=== PATIENT | male | born 1960 | race Caucasian/White ===

== ENCOUNTER → 2016-10-29 | Outpatient (CLI) | payer OTHER ==
[2016-10-29 18:56] LABS: ALT 45 U/L (21-72); AST 25 U/L (17-59); Alkaline Phosphatase 78 U/L (38-126); Anion Gap 12 mmol/L; Blood Urea Nitrogen 17 mg/dL (9-20); Calcium 9.9 mg/dL (8.4-10.2); Carbon Dioxide 22 mmol/L (22-30); Chloride 103 mmol/L (98-107); Cholesterol 165 mg/dL (<200); Glucose 180 mg/dL (74-99); HDL Cholesterol 58 mg/dL (40-60); Non-African American GFR(MDRD) >60 (>60 ml/min/1.73 sqM); Potassium 4.5 mmol/L (3.5-5.1); Sodium 137 mmol/L (137-145); Total Bilirubin 0.5 mg/dL (0.2-1.3); Total Protein 7.1 g/dL (6.3-8.2); Triglycerides 139 mg/dL (<150)
[2016-10-29 19:16] LABS: Basophils # (A) 0.1 k/uL (0-0.2); Basophils % (A) 1 %; CH 32.5; Eosinophils # (A) 0.2 k/uL (0-0.7); Eosinophils % (A) 3 %; HCT 46.2 % (39.0-53.0); HDW 2.54; HGB 16.1 gm/dL (13.0-17.5); Luc # (Auto) 0.14; Luc % (Auto) 2; Lymphocytes % (A) 29 %; MCH 32.5 pg (25.0-35.0); MCHC 34.9 g/dL (31.0-37.0); MCV 93.1 fL (80.0-100.0); Mean Platelet Volume 7.3; Monocytes # (A) 0.5 k/uL (0-1.0); Monocytes % (A) 8 %; Neutrophils % (A) 58 %; RBC 4.97 m/uL (4.30-5.90); RDW 12.8 % (11.5-15.5); WBC (Perox) 6.68
[2016-10-29 22:31] LABS: Hemoglobin A1C 6.9 % (4.2-6.1)
== END ==
LOC: MMGSC 17:31
PROVIDERS: ATTEND Family Medicine
DX: E11.9 Type 2 diabetes mellitus without complications (principal); E78.5 Hyperlipidemia, unspecified; E03.9 Hypothyroidism, unspecified
CPT/HCPCS: 36415; 80053; 80061; 83036; 84439; 84443; 85025

== ENCOUNTER → 2017-06-03 | Outpatient (CLI) | payer OTHER ==
[2017-06-03 19:06] LABS: ALT 46 U/L (21-72); AST 30 U/L (17-59); Albumin 4.4 g/dL (3.5-5.0); Alkaline Phosphatase 69 U/L (38-126); Anion Gap 12 mmol/L; Blood Urea Nitrogen 18 mg/dL (9-20); Calcium 9.9 mg/dL (8.4-10.2); Carbon Dioxide 26 mmol/L (22-30); Chloride 105 mmol/L (98-107); Cholesterol 164 mg/dL (<200); Glucose 119 mg/dL (74-99); HDL Cholesterol 70 mg/dL (40-60); LDL Cholesterol,Calculated 81 mg/dL (0-99); Potassium 4.5 mmol/L (3.5-5.1); Sodium 143 mmol/L (137-145); Total Bilirubin 0.6 mg/dL (0.2-1.3); Total Protein 7.5 g/dL (6.3-8.2); Triglycerides 66 mg/dL (<150)
[2017-06-03 19:08] LABS: Basophils # (A) 0.1 k/uL (0-0.2); Basophils % (A) 1 %; Eosinophils # (A) 0.1 k/uL (0-0.7); Eosinophils % (A) 2 %; HCT 49.6 % (39.0-53.0); HGB 15.8 gm/dL (13.0-17.5); Lymphocytes # (A) 1.6 k/uL (1.0-4.8); Lymphocytes % (A) 32 %; MCH 31.1 pg (25.0-35.0); MCHC 31.9 g/dL (31.0-37.0); MCV 97.5 fL (80.0-100.0); Mean Platelet Volume 7.3; Monocytes # (A) 0.4 k/uL (0-1.0); Monocytes % (A) 8 %; Neutrophils # (A) 2.7 k/uL (1.3-7.7); Neutrophils % (A) 54 %; Platelet Count 373 k/uL (150-450); RBC 5.08 m/uL (4.30-5.90); RDW 12.6 % (11.5-15.5)
[2017-06-03 19:20] LABS: T4, Free (Free Thyroxine) 0.99 ng/dL (0.78-2.19)
[2017-06-03 19:34] LABS: PSA Annual Screen 2.35 ng/mL (0.00-4.00)
[2017-06-04 00:52] LABS: Hemoglobin A1C 7.2 % (4.0-6.0)
== END | disposition home or self-care (01) ==
LOC: MMGSC 14:20
PROVIDERS: ATTEND Family Medicine
DX: E78.5 Hyperlipidemia, unspecified (principal); E03.9 Hypothyroidism, unspecified; E10.8 Type 1 diabetes mellitus with unspecified complications; Z12.5 Encounter for screening for malignant neoplasm of prostate
CPT/HCPCS: 84439; 80061; 80053; 84443; 85025; 82043; 82570; 83036; 36415; G0103

== ENCOUNTER 2018-02-12 06:51 | Day surgery (SDC) | payer OTHER ==
[2018-02-10 11:23] VITALS: BMI 27.7
[~2018-02-12 06:51] MED LIST: LACTATED RINGERS 1,000 ML IV SCH
[2018-02-12] MEDS ORDERED: LACTATED RINGERS 1,000 ML IV ONE (07:08)
[2018-02-12 07:18] VITALS: TEMP 97.6
[2018-02-12 07:30] LABS: Glucose,Whole Blood 91 mg/dL (75-99)
[2018-02-12] MEDS ORDERED: LIDOCAINE 1% INJ 10MG/ML (20 ML MDV) ONE (07:33)
[2018-02-12] MEDS ORDERED: PROPOFOL 10 MG/ML 20 ML VIAL IV ONE (07:33)
--- NOTE | 2018-02-12 07:37 | P.GSHP ---
History of Present Illness H&P Date: 02/12/18 Chief Complaint: Colon cancer screening Patient here today for colonoscopy. Last colonoscopy 5-6 years ago. He has a history of multiple colon polyps. No bowel related complaints. No family history of colon cancer. Past Medical History Past Medical History: Diabetes Mellitus, Hyperlipidemia, Thyroid Disorder History of Any Multi-Drug Resistant Organisms: None Reported Past Surgical History: Adenoidectomy, Hernia Repair, Orthopedic Surgery, Tonsillectomy Additional Past Surgical History / Comment(s): BILAT KNEE SCOPES. BILAT ROTATOR CUFF REPAIR. RUPTURED HERNIA REPAIR . COLONOSCOPY X 2 Past Anesthesia/Blood Transfusion Reactions: No Reported Reaction Smoking Status: Former smoker - Past Family History Mother Family Medical History: No Reported History Medications and Allergies Home Medications Medication Instructions Recorded Confirmed Type Aspirin 325 mg PO DAILY 02/10/18 02/12/18 History Atorvastatin [Lipitor] 80 mg PO DAILY 02/10/18 02/12/18 History Cholecalciferol (Vitamin D3) 2,000 unit PO DAILY 02/10/18 02/12/18 History [Vitamin D3] Insulin Aspart [NovoLOG 02/10/18 History (formulary)] [place]-3 Fatty Acids/Fish Oil [Fish 1 each PO DAILY 02/10/18 02/12/18 History Oil 1,000 mg Softgel] Allergies Allergy/AdvReac Type Severity Reaction Status Date / Time No Known Allergies Allergy Verified 02/12/18 07:24 Surgical - Exam Vital Signs Temp Pulse Resp BP Pulse Ox 97.6 F 67 14 123/68 96 02/12/18 07:16 02/12/18 07:16 02/12/18 07:16 02/12/18 07:16 02/12/18 07:16 Physical exam: General: Well-developed, well-nourished HEENT: Normocephalic, sclerae nonicteric Abdomen: Nontender, nondistended Extremities: No edema Neuro: Alert and oriented Assessment and Plan (1) Colon cancer screening Narrative/Plan: Will proceed with colonoscopy at this time Current Visit: Yes Status: Acute Code(s): Z12.11 - ENCOUNTER FOR SCREENING FOR MALIGNANT NEOPLASM OF COLON SNOMED Code(s): 110196160
--- NOTE | 2018-02-12 07:54 | P.PCN ---
Date of Procedure: 02/12/18 Procedure(s) Performed: PREOPERATIVE DIAGNOSIS: Screening with history of polyps POSTOPERATIVE DIAGNOSIS: Diverticulosis PROCEDURE: Colonoscopy ANESTHESIA: MAC SURGEON: Tashi Wharton M.D. SPECIMENS: None ENDOSCOPIC PROCEDURE: The patient was placed on the endoscopy table in the left decubitus position. The Olympus colonoscope was inserted into the anus and passed under direct visualization to the base of the cecum. The appendiceal orifice was visualized. From that point the scope was slowly withdrawn inspecting all surfaces carefully. There were no neoplastic inflammatory or polypoid lesions throughout the cecum, ascending, transverse, descending, sigmoid and rectum. There was moderate diverticulosis noted throughout the colon. Digital rectal examination was normal. The patient was taken to the recovery room in stable condition per anesthesia guidelines. RECOMMENDATIONS: Increase fiber. Follow-up colonoscopy 5 years.
[2018-02-12 08:04] LABS: Glucose,Whole Blood 85 mg/dL (75-99)
[2018-02-12 08:19] VITALS: BP 115/72; PULSE 58; RESP 18
== END 2018-02-12 08:30 | disposition home or self-care (01) ==
LOC: ORWHC2ENDO 06:51
PROVIDERS: ATTEND Surgery
DX: Z12.11 Encounter for screening for malignant neoplasm of colon (principal); K57.30 Diverticulosis of large intestine without perforation or abscess without bleeding; E78.5 Hyperlipidemia, unspecified; E11.9 Type 2 diabetes mellitus without complications; E07.9 Disorder of thyroid, unspecified; Z86.010 Personal history of colon polyps; Z87.891 Personal history of nicotine dependence; Z79.82 Long term (current) use of aspirin; Z79.4 Long term (current) use of insulin; Z79.899 Other long term (current) drug therapy
CPT/HCPCS: 45378; J2001; J2704

== ENCOUNTER 2023-04-06 07:54 | Day surgery (SDC) | payer OTHER ==
[2023-04-06] MEDS ORDERED: LACTATED RINGERS 1,000 ML IV SCH (08:00)
[2023-04-06] MEDS ORDERED: LIDOCAINE 1% (10MG/ML) FOR IV START INTRADERMA PRN (08:00)
[2023-04-06 08:34] VITALS: TEMP 97
[2023-04-06 08:44] LABS: Glucose,Whole Blood 124 mg/dL (70-110)
[2023-04-06] MEDS ORDERED: PROPOFOL 10 MG/ML 20 ML VIAL IV ONE (09:21)
[2023-04-06] MEDS ORDERED: MIDAZOLAM 2 MG/2 ML VIAL ONE (09:21)
--- NOTE | 2023-04-06 09:51 | P.GSHP ---
History of Present Illness H&P Date: 04/06/23 Chief Complaint: History of colon polyps This is a 63-year-old male with previous history of colon polyps. Patient had a colonoscopy breast 5 years ago. He was found have diverticulosis and benign polyps that time. He has had no GI complaints. Past Medical History Past Medical History: Diabetes Mellitus, Hyperlipidemia, Osteoarthritis (OA), Seizure Disorder, Thyroid Disorder Additional Past Medical History / Comment(s): hx. colon polyps, grand mal seizure 15 yrs. ago related to very low blood sugar, Type 1 diabetic History of Any Multi-Drug Resistant Organisms: None Reported Past Surgical History: Adenoidectomy, Hernia Repair, Orthopedic Surgery, Tonsillectomy Additional Past Surgical History / Comment(s): BILAT KNEE SCOPES. BILAT ROTATOR CUFF REPAIR. RUPTURED HERNIA REPAIR INFANT. COLONOSCOPY X 2 Past Anesthesia/Blood Transfusion Reactions: No Reported Reaction Smoking Status: Former smoker - Past Family History Mother Family Medical History: Deep Vein Thrombosis (DVT) Medications and Allergies Home Medications Medication Instructions Recorded Confirmed Type Aspirin 81 mg PO DAILY 02/10/18 04/06/23 History Atorvastatin [Lipitor] 80 mg PO DAILY 02/10/18 04/06/23 History Cholecalciferol (Vitamin D3) 2,000 unit PO DAILY 02/10/18 04/06/23 History [Vitamin D3] [place]-3 Fatty Acids/Fish Oil [Fish 1 each PO DAILY 02/10/18 04/06/23 History Oil 1,000 mg Softgel] Glucosamine/Chondr Siddiqui A Sod [Osteo 1 each PO DAILY 04/02/23 04/06/23 History Bi-Flex Caplet] INSULIN LISPRO (For Pump) [humaLOG 0.01 units SQ-PUMP CONTINUOUS 04/02/23 1 06/07/22 History (For Pump)] Levothyroxine Sodium [Synthroid] 150 mcg PO DAILY 04/02/23 04/06/23 History Vitamin E (Dl,Tocopheryl Acet) 400 unit PO DAILY 04/02/23 04/06/23 History [Vitamin E (400 Iu = 180 mg)] Allergies Allergy/AdvReac Type Severity Reaction Status Date / Time No Known Allergies Allergy Verified 04/06/23 08:13 Surgical - Exam Vital Signs Temp Pulse Resp BP Pulse Ox 97.0 F L 67 14 123/58 97 04/06/23 08:18 04/06/23 08:18 04/06/23 08:18 04/06/23 08:18 04/06/23 08:18 - General well developed, well nourished, no distress - Eyes PERRL - ENT normal pinna, normal nares - Neck no masses - Respiratory normal expansion - Cardiovascular Rhythm: regular - Abdomen Abdomen: soft, non tender Results - Labs Abnormal Lab Results - Last 24 Hours (Table) 04/06/23 Range/Units 08:42 POC Glucose (mg/dL) 124 H (70-110) mg/dL Assessment and Plan Assessment: History of colon polyps, history of diverticulosis. We'll perform colonoscopy
--- NOTE | 2023-04-06 09:53 | P.OP ---
Date of Procedure: 04/06/23 Preoperative Diagnosis: History: Polyps Postoperative Diagnosis: Diverticulosis Procedure(s) Performed: Colonoscopy Anesthesia: MAC Surgeon: Mark Davis Condition: stable Disposition: PACU Description of Procedure: The patient's placed on the endoscopy table in the lateral position. He received IV sedation. Digital rectal exam was performed. This revealed no abnormalities. Flexible colonoscopy was then placed patient anus and passed throughout the entire colon. The ileocecal valve was visualized. Cecum appeared normal. In the right colon there was a few scattered diverticula. In the transverse colon there were a few scattered diverticula is well. In the descending sigmoid colon there is extensive diverticulosis. Scope was brought back the rectum and this appeared normal. Scope withdrawn for patient. There were no polyps seen. Patient top she will well.
[2023-04-06 10:19] LABS: Glucose,Whole Blood 113 mg/dL (70-110)
[2023-04-06 10:38] VITALS: BP 136/83; PULSE 59; RESP 18
== END 2023-04-06 10:46 | disposition home or self-care (01) ==
LOC: ORWHC2ENDO 07:54
PROVIDERS: ATTEND Surgery
DX: K57.30 Diverticulosis of large intestine without perforation or abscess without bleeding (principal); E78.5 Hyperlipidemia, unspecified; E11.9 Type 2 diabetes mellitus without complications; M19.90 Unspecified osteoarthritis, unspecified site; G40.909 Epilepsy, unspecified, not intractable, without status epilepticus; E07.9 Disorder of thyroid, unspecified; Z90.89 Acquired absence of other organs; Z98.890 Other specified postprocedural states; Z87.891 Personal history of nicotine dependence; Z86.73 Personal history of transient ischemic attack (TIA), and cerebral infarction without residual deficits; Z86.010 Personal history of colon polyps; Z79.82 Long term (current) use of aspirin; Z79.899 Other long term (current) drug therapy; Z79.4 Long term (current) use of insulin; Z79.890 Hormone replacement therapy
CPT/HCPCS: 45378; J2250; J2704

== ENCOUNTER → 2023-05-25 | Outpatient (CLI) | payer OTHER ==
[2023-05-25 18:44] LABS: Basophils # (A) 0.04 X 10*3/uL (0.00-0.10); Basophils % (A) 0.7 %; Eosinophils # (A) 0.15 X 10*3/uL (0.04-0.35); Eosinophils % (A) 2.8 %; HCT 44.4 % (39.6-50.0); HGB 14.7 g/dL (13.0-17.0); Lymphocytes # (A) 1.58 X 10*3/uL (0.90-5.00); MCH 31.5 pg (27.0-32.0); MCHC 33.1 g/dL (32.0-37.0); MCV 95.1 FL (80.0-97.0); Mean Platelet Volume 10.2 FL (9.5-12.2); Monocytes # (A) 0.68 X 10*3/uL (0.20-1.00); Monocytes % (A) 12.5 %; NRBC Per 100 WBC 0 X 10*3/uL (0.00-0.01); Neutrophils # (A) 2.99 X 10*3/uL (1.80-7.70); Neutrophils % (A) 54.8 %; Platelet Count 360 X 10*3/uL (140-440); RBC 4.67 X 10*6/uL (4.40-5.60); RDW 12.7 % (11.5-14.5); WBC 5.45 X 10*3/uL (4.50-10.00)
[2023-05-25 18:55] LABS: BUN/Creat Ratio 13.78 Ratio (12.00-20.00); Blood Urea Nitrogen 12.4 mg/dL (9.0-27.0); Calcium 9.5 mg/dL (8.7-10.3); Carbon Dioxide 24.2 mmol/L (21.6-31.8); Chloride 105 mmol/L (96-109); Glucose 91 mg/dL (70-110); Potassium 4.5 mmol/L (3.5-5.5); Sodium 139 mmol/L (135-145)
[2023-05-25 23:15] LABS: INR 0.96 sec (0.93-1.11); Prothrombin Time 10.4 sec (9.9-11.9)
== END | disposition home or self-care (01) ==
LOC: LABPAT 10:48
PROVIDERS: ATTEND Orthopaedic Surgery
DX: Z01.818 Encounter for other preprocedural examination (principal); M17.11 Unilateral primary osteoarthritis, right knee; R00.1 Bradycardia, unspecified; Z22.322 Carrier or suspected carrier of Methicillin resistant Staphylococcus aureus
CPT/HCPCS: 36415; 80048; 85025; 85610; 87070; 93005

== ENCOUNTER 2023-06-02 08:39 | Observation (INO) | payer OTHER ==
[2023-05-26 11:13] VITALS: BMI 29.0
--- NOTE | 2023-06-01 08:54 | P.HPOR ---
History of Present Illness H&P Date: 06/01/23 Chief Complaint: Right knee pain The patient is a 63-year-old male who presents with progressive right knee pain over the past year worsening over the past 6 months. He notes diffuse pain along with swelling. He has a difficult time with weightbearing activities. He has buckling and locking. He is also having night symptoms. He tried medications along with activity modifications and home exercises without much relief. Review of Systems As per HPI Past Medical History Past Medical History: Diabetes Mellitus, Hyperlipidemia, Osteoarthritis (OA), Seizure Disorder, Thyroid Disorder Additional Past Medical History / Comment(s): hx. colon polyps, grand mal seizure 15 yrs. ago related to very low blood sugar, Type 1 diabetic-HAS INSULIN PUMP AND WEARS CGM History of Any Multi-Drug Resistant Organisms: None Reported Past Surgical History: Adenoidectomy, Hernia Repair, Orthopedic Surgery, Tonsillectomy Additional Past Surgical History / Comment(s): BILAT KNEE SCOPES. BILAT ROTATOR CUFF REPAIR. RUPTURED HERNIA REPAIR INFANT. COLONOSCOPY X 3 Past Anesthesia/Blood Transfusion Reactions: No Reported Reaction Smoking Status: Former smoker - Past Family History Mother Family Medical History: Deep Vein Thrombosis (DVT) Medications and Allergies Home Medications Medication Instructions Recorded Confirmed Type Aspirin 81 mg PO DAILY 02/10/18 05/26/23 History Atorvastatin [Lipitor] 80 mg PO DAILY 02/10/18 05/26/23 History Cholecalciferol (Vitamin D3) 2,000 unit PO DAILY 02/10/18 05/26/23 History [Vitamin D3] [place]-3 Fatty Acids/Fish Oil [Fish 1 each PO DAILY 02/10/18 05/26/23 History Oil 1,000 mg Softgel] Glucosamine/Chondr Siddiqui A Sod [Osteo 1 each PO DAILY 04/02/23 05/26/23 History Bi-Flex Caplet] INSULIN LISPRO (For Pump) [humaLOG 0.01 units SQ-PUMP CONTINUOUS 04/02/23 05/26/23 History (For Pump)] Levothyroxine Sodium [Synthroid] 150 mcg PO DAILY 04/02/23 05/26/23 History Vitamin E (Dl,Tocopheryl Acet) 400 unit PO DAILY 04/02/23 05/26/23 History [Vitamin E (400 Iu = 180 mg)] Allergies Allergy/AdvReac Type Severity Reaction Status Date / Time No Known Allergies Allergy Verified 05/26/23 10:58 Physical Examination - Knee right Appearance: effusion Effusion grade: grade 1 Varus alignment in stance: 10 degrees Tenderness with palpation: anterior, medial Pain: throughout ROM Gait: limping ROM: extension: -15 degrees ROM: flexion: 110 degrees Crepitus with motion: Yes Strength: extension: 5/5 Strength: flexion: 5/5 Meniscal tests: medial meniscal tests: positive, medial joint line pain: positive Results The patient is a well-developed well-nourished male approximate 6 foot 1, 206 pounds a mesomorphic habitus. HEENT exam is nonfocal, neck is supple. He has painless passive motion of the right hip. Straight leg raise is negative. He is tender about the medial joint line of the right knee. He has genu varum alignment. Collaterals are stable, Benton is negative, Tanya's elicits medial pain. His distal neurovascular status appears intact right lower extremity. - Diagnostic results Knee x-ray: image reviewed (Reviews of the right knee obtaining the office show severe medial compartment and patellofemoral compartment osteoarthrosis with [id number] changes and subchondral sclerosis. A proximal medial tibial staple is noted.) Assessment and Plan Assessment: Right knee severe medial and patellofemoral compartment osteoarthrosis Retained hardware right proximal tibia Insulin dependent diabetes Plan: I talked to the patient regarding his condition along with treatment options. At this point he remains quite symptomatic despite previous conservative measures. After a thorough discussion has to proceed with surgery. We will plan to proceed with right total knee arthroplasty with probable hardware removal from the proximal tibia. Risks and benefits were discussed at length in layman's terms. We will institute DVT prophylaxis postoperatively.
[~2023-06-02 08:39] MED LIST changes: +HYDROmorphone 0.5 MG/0.5 ML SYRINGE IVP PRN; -LACTATED RINGERS 1,000 ML IV SCH; +LIDOCAINE 1% (10MG/ML) FOR IV START INTRADERMA PRN; +TRANEXAMIC 1,000 MG/100ML-NACL 1,000 MG in SALINE 1 100ML.BAG IVPB PRN
[2023-06-02] MEDS: MELOXICAM 7.5 MG TAB PO PRN (09:38)
[2023-06-02] MEDS: ONDANSETRON 4 MG/2 ML VIAL IVP ONE ×2 (09:38→14:55)
[2023-06-02] MEDS: ACETAMINOPHEN TAB 500 MG TAB PO PRN (09:38)
[2023-06-02] MEDS: DEXAMETHASONE SOD PHOSPHATE 4 MG/ML 1 ML VIAL IVP ONE (09:39)
[2023-06-02] MEDS: LACTATED RINGERS 1,000 ML IV ONE ×2 (09:40→13:39)
[2023-06-02 09:47] LABS: Glucose,Whole Blood 120 mg/dL (70-110)
[2023-06-02] MEDS: fentaNYL (PF) 50 MCG/ML 2 ML AMP IVP ONE (09:59)
[2023-06-02] MEDS: MIDAZOLAM 2 MG/2 ML VIAL IVP ONE (09:59)
[2023-06-02] MEDS ORDERED: MIDAZOLAM 2 MG/2 ML VIAL ONE (11:27)
[2023-06-02] MEDS ORDERED: fentaNYL (PF) 50 MCG/ML 2 ML AMP ONE (11:27)
[2023-06-02] MEDS ORDERED: TRANEXAMIC 1,000 MG/100ML-NACL PREMIX BAG ONE (11:27)
[2023-06-02] MEDS ORDERED: ePHEDrine 50 MG/ML 1 ML VIAL ONE (11:27)
[2023-06-02] MEDS ORDERED: PHENYLEPHRINE-0.9% NACL SYG 1,000 MCG/10 ML SYRINGE ONE (11:27)
[2023-06-02] MEDS ORDERED: PROPOFOL 10 MG/ML 20 ML VIAL IV ONE (11:27)
[2023-06-02] MEDS ORDERED: ROPIVACAINE 5 MG/ML 30 ML VIAL ONE (11:27)
[2023-06-02] MEDS ORDERED: SODIUM CHLORIDE 0.9% (PF) 10 ML VIAL ONE (11:27)
[2023-06-02] MEDS: ceFAZolin 1,000 MG in SODIUM CHLORIDE 0.9% 1,000 ML IRRIGATION ONE (11:57)
--- NOTE | 2023-06-02 12:05 | P.ANPRN ---
Procedure Note - Anesthesia - Nerve Block Performed Right Adductor Canal Infusion Time Out Performed: Yes (0958) Date of Procedure: 06/02/23 Procedure Start Time: 10:59 Procedure Stop Time: 10:05 Location of Patient: PreOp Indication: Acute Post-Operative Pain, Requested by Surgeon Specifically requested for management of pain by : Abdiel Arias Sedation Type: Sedate with meaningful contact maintained Preparation: Sterile Prep, Sterile Dressing Position: Supine Catheter Depth at Skin (cm): 7 Catheter: Indwelling Needle Types: Pajunk Needle Gauge: 18 Ultrasound used to visualize needle placement: Yes Ultrasound used to observe medication spread: Yes Injectate: 0.5% Ropivacaine (see comment for volume) (15cc +10cc nacl pf) Blood Aspirated: No Pain Paresthesia on Injection Noted: No Resistance on Injection: Normal Image Stored and Saved: Yes Events: Uneventful and Well Tolerated
[2023-06-02] MEDS ORDERED: HYDROcodone/APAP 5-325MG 1 EACH TAB PO PRN (12:06)
[2023-06-02] MEDS ORDERED: NALOXONE 0.4 MG/ML 1 ML VIAL IV PRN (12:06)
[2023-06-02] MEDS ORDERED: MAGNESIUM HYDROXIDE 2,400 MG/30 ML CUP PO PRN (12:06)
--- NOTE | 2023-06-02 12:06 | P.ANPRN ---
Procedure Note - Anesthesia - Nerve Block Performed Right iPack Single Time Out Performed: Yes (0958) Date of Procedure: 06/02/23 Procedure Start Time: Procedure Stop Time: Location of Patient: PreOp Indication: Acute Post-Operative Pain, Requested by Surgeon Specifically requested for management of pain by DrXavier: Abdiel Arias Sedation Type: Sedate with meaningful contact maintained Preparation: Sterile Prep Position: Supine Catheter: None Needle Types: Pajunk Needle Gauge: 21 Ultrasound used to visualize needle placement: Yes Ultrasound used to observe medication spread: Yes Injectate: 0.5% Ropivacaine (see comment for volume) (15cc+ 10cc nacl pf) Blood Aspirated: No Pain Paresthesia on Injection Noted: No Resistance on Injection: Normal Image Stored and Saved: Yes Events: Uneventful and Well Tolerated
--- NOTE | 2023-06-02 13:47 | P.OP ---
Date of Procedure: 06/02/23 Preoperative Diagnosis: Right knee severe tricompartmental osteoarthrosis/retained hardware right proximal tibia Postoperative Diagnosis: Same Procedure(s) Performed: Right total knee arthroplastycementedposterior stabilized/hardware removal right proximal tibia Implants: Depuy Attune size 7 cemented femoral component, size 6 cemented tibial component, 9 mm articular surface, 38 mm cemented patellar component. This is a posterior stabilized implant. Anesthesia: regional, spinal Surgeon: bAdiel Arias Fireworks Display Specialist #1: Arslan Cooper Estimated Blood Loss (ml): 50 Pathology: none sent Condition: stable Disposition: PACU Indications for Procedure: The patient is a 63-year-old male who presents with progressive right knee pain secondary to osteoarthrosis despite conservative measures. A discussion of the risks and benefits of operative intervention versus continued conservative measures was made with patient. Proceed with surgery. Operative risks to include infection, neurovascular injury, development of blood clots, fracture, possible component loosening/failure and possible need for subsequent procedures was discussed. Informed consent was obtained. Operative Findings: As below Description of Procedure: The patient was brought to the operating room, and after induction of spinal anesthesia the right lower extremity was prepped and draped in a normal fashion. The tourniquet was inflated to 270 mm marker. A longitudinal incision extending 3 finger breaths above the superior pole of patella extending to the medial aspect the tibial tubercle was then made. The skin and subcutaneous tissues were divided sharply. Electrocautery was used for hemostasis. A medial parapatellar arthrotomy was performed. The medial soft tissues to include the superficial and deep portions of the medial collateral ligament were elevated subperiosteally. The patella was everted. A portion of the retropatellar fat pad was excised sharply. The anterior cruciate ligament was sacrificed. Blunt retractors were placed. A starting hole was made in the distal femur 1 cm anterior to the posterior cruciate ligament origin. An intramedullary femoral guide was then inserted planning on 5 valgus distal cut with 9 mm distal resection. The cutting block was pinned in place. The distal cut was then made. The posterior referencing sizing guide was utilized. I felt size 7 was most appropriate. 3 of external rotation was built into the system and verified off the trans-epicondylar axis and the posterior condyles. The cutting block was pinned in place. The anterior, posterior, and chamfer cuts then made. Bone fragments were removed. The intercondylar guide was placed and the notch cut was made with a sagittal saw. The bone block was removed in one fragment. The trial component was then placed. There is good anterior to posterior and medial to lateral fit. The distal peg holes were drilled. The trial component was removed. Attention was then paid towards preparing the proximal tibia. An extra medullary guide was utilized in line with the tibial shaft and second metatarsal distally. I planned on 0 mm resection from the medial compartment. The cutting block was pinned in place. The proximal tibial cut was then made. The bone was removed in one fragment. The remnants of the medial and lateral menisci were excised at the capsular junction with electrocautery. The tibia sized most appropriately at size 6. The trial femoral and tibial components were placed along with a 9 mm articular surface. I was able to obtain full flexion and extension with internal and external rotation. After several flexion and extension cycles, the tibial rotation was marked with electrocautery line with the medial one third of the tibial tubercle. Attention was then paid towards preparing the patella. A patella reamer was utilized taking stem to 14 mm of bone stock. A good flush cut was made. The patella sized most appropriately 38 mm. The peg holes were drilled. The trial components placed. I had good patellofemoral tracking with no hands technique. The trial components were then removed. The tibia was prepared in the appropriate rotation with appropriate drill and keel punch. I did remove the proximal medial tibial staple as it interfered with the drill and keel preparation of the proximal tibia. The posterior osteophytes were removed with a curved osteotome. The flexion and extension gaps were checked and felt to be symmetric at 9 mm. A trial components were then removed. The bony surfaces were prepared with pulsatile lavage and dried. The tibial component was then cemented place was fully seated. Excess cement was removed. The femoral component cemented place and was fully seated. Excess cement was removed. The trial 9 mm articular surface was placed and the knee was put in full extension. The patella component was cemented place. After the cement had sufficiently hardened, the knee was again taken through a range of motion. Again I was able to obtain full flexion and extension with varus and valgus stress. The trial 9 mm articular surface was removed and the final one inserted. This was fully seated. Care was taken to avoid any soft tissue interposition. Pulsatile lavage was again utilized. The medial parapatellar arthrotomy was closed with #2 Ethibond suture. The tourniquet was deflated with approximately 75 minutes total tourniquet time. Final hemostasis was obtained with the cautery. There was minimal bleeding therefore a deep drain was not placed. The subcutaneous tissues were reapproximated with interrupted 2-0 Vicryl sutures. The skin was reapproximated with 3-0 subcuticular strata fix suture. Skin tape and adhesive was applied. A sterile dressing was applied. The patient was awoken from sedation and transferred to recovery room in good condition. Blood loss was estimated at 50 mL. No complications were incurred. Sponge and needle counts were correct at the end of the case. Haris FERNANDEZ assisted during the major components of this case to include exposure, bone resection, implantation, and closure.
[2023-06-02 13:50] LABS: Glucose,Whole Blood 120 mg/dL (70-110)
[2023-06-02] MEDS: ROPIVACAINE 0.75% 1,100 MG, SODIUM CHLORIDE 0.9% 500 ML 403 ML, EMPTY PAIN BALL 1 EACH MISCELLANE PRN (14:14)
--- NOTE | 2023-06-02 14:38 | XR ---
EXAMINATION TYPE: XR knee limited RT DATE OF EXAM: 06/02/2023 2:20 PM CLINICAL INDICATION:Male, 63 years old with history of Evaluation for Postop abnormality and alignmen t; [facility] COMPARISON: 05/04/2023. TECHNIQUE: XR knee limited RT; examined in Frontal, lateral and oblique projections. FINDINGS: Status post total knee arthroplasty changes with hardware in appropriate alignment and in tact. No evidence of fracture. Subcutaneous lucencies and lucencies within the joint consistent with surgical changes. IMPRESSION: Status post total knee arthroplasty changes with hardware intact and appropriate alignment. No fractu res identified.
[2023-06-02] MEDS: droPERidol 5 MG/2 ML VIAL IVP ONE (14:55)
[2023-06-02] MEDS: LACTATED RINGERS 1,000 ML IV SCH (14:55)
[2023-06-02] MEDS ORDERED: DEXTROSE 50% SYRINGE 50 ML IVP PRN ×2 (15:11)
[2023-06-02] MEDS: INSULIN LISPRO 100 UNIT/ML MISCELLANE SCH (16:01)
[2023-06-02] MEDS: HYDROcodone/APAP 7.5-325MG 1 EACH TAB PO PRN (16:22)
--- NOTE | 2023-06-02 17:20 | P.CONS ---
History of Present Illness - Reason for Consult Consult date: 06/02/23 Medical Management Requesting physician: Abdiel Arias - History of Present Illness History of Presenting Illness: Patient is a very pleasant 63-year-old male with a past medical history of insulin-dependent diabetes mellitus, hypertension, hyperlipidemia, hypothyroidism, and osteoarthritis. He is currently admitted under orthopedic surgery team status post elective right total knee arthroplasty secondary to severe tricompartmental osteoarthrosis of right knee with retained hardware of proximal right tibia. Surgical procedure was completed by Dr. Arias. We have been consulted for medical management throughout patient's hospitalization. Patient seen and fully evaluated at bedside. Patient currently resting comfortably, reports mild postoperative pain currently controlled. He denies experiencing any postoperative nausea or vomiting but does report inability to urinate thus since completion of sugical procedure. Patient denies having any headache, lightheadedness, dizziness, chest pain, palpitations, shortness of b reath, or any other complaints at this time. Review of systems: Pertinent positives and negatives as discussed in HPI, a complete review of systems was performed and all other systems are negative. Physical exam: Vital signs reviewed and stable. General: Nontoxic, no distress and appears stated age. Derm: Skin warm and dry, normal coloration for ethnicity. Head: Atraumatic, normocephalic and symmetric. Eyes: EOMs intact, no lid lag, and anicteric sclera Mouth: no lip lesions, mucus membranes moist Cardiovascular: regular rate and rhythm with normal S1S2, no murmur, positive posterior tibial pulses bilaterally, and cap refill < 2 seconds. Lungs: Respirations even, regular, and unlabored on room air. Lungs CTA bilaterally, no rhonchi, no rales, no wheezing, and no accessory muscle usage. Abdominal: soft, nontender to palpation, no guarding, no appreciable organomegaly Ext: No gross muscle atrophy, no edema, no contractures. Movement and sensation intact. Postoperative dressing and ice pack in place to right knee. Neuro: Speech clear, face symmetrical and CN II-XII grossly intact with no noted focal neuro deficits Psych: Alert and oriented to person, place, time, and situation. Appropriate and pleasant affect. Assessment and Plan of Care: Postoperative urinary retention Patient continues to report inability to urinate since surgical procedure. Orders placed for bladder scanning to monitor for urinary retention and/or postvoid residuals. Monitor for resolution, patient may require straight catheterization if postvoid residual/urinary retention greater than 350 cc. If no improvement in postoperative urinary retention by tomorrow morning and patient requires straight catheterization, will start patient on Flomax 0.4 mg daily. Status post right total knee arthroplasty Management per primary admitting orthopedic surgery team including DVT prophylaxis, pain management, wound/dressing care, weightbearing, and PT/OT. Currently DVT prophylaxis with Xarelto 10 mg daily. Insulin-dependent diabetes mellitus Patient placed on glycemic protocol with glucose checks to be completed 4 times daily with meals and at bedtime along with orders placed for patient to continue use of personal insulin pump. Heart healthy and carb consistent diet. Hypothyroidism Continue daily medication regimen with levothyroxine 150 mcg daily. Hyperlipidemia Continue daily medication regimen with atorvastatin 80 mg daily. Heart healthy and carb consistent diet. Data reviewed: Blood glucose 120. Vital signs reviewed and stable. Blood pressure 112/63, heart rate 63, respiratory rate 19, temp 97.6 F, and SpO2 of 93% on room air. Orders placed for morning CBC, BMP, and magnesium. Will follow-up with these results and place additional orders as indicated based upon these findings. Reviewed preoperative labs completed 05/25/2023 showing a hemoglobin of 14.7 and platelet count of 360. Thank you for allowing us to participate in the care of this pleasant patient. Do not hesitate to contact us with questions. Someone can be reached from the [facility] hospitalist group all hours of the day at [phone] or via [employer]. Patient was seen independently by Nurse Practitioner. This document was prepared using [employer] dictation software. Please allow for errors in drafting teacher while rare they do occur. Juaquin Velazco NP rendered care for this patient independently, reviewed the findings and plan as documented in the note above. I did not physically speak with or examine the patient on this date. Past Medical History Past Medical History: Diabetes Mellitus, Hyperlipidemia, Osteoarthritis (OA), Seizure Disorder, Thyroid Disorder Additional Past Medical History / Comment(s): hx. colon polyps, grand mal seizure 15 yrs. ago related to very low blood sugar, Type 1 diabetic-HAS INSULIN PUMP AND WEARS CGM History of Any Multi-Drug Resistant Organisms: None Reported Past Surgical History: Adenoidectomy, Hernia Repair, Orthopedic Surgery, Tonsillectomy Additional Past Surgical History / Comment(s): BILAT KNEE SCOPES. BILAT ROTATOR CUFF REPAIR. RUPTURED HERNIA REPAIR INFANT. COLONOSCOPY X 3 Past Anesthesia/Blood Transfusion Reactions: No Reported Reaction Smoking Status: Former smoker - Past Family History Mother Family Medical History: Deep Vein Thrombosis (DVT) Medications and Allergies Home Medications Medication Instructions Recorded Confirmed Type Atorvastatin [Lipitor] 80 mg PO DAILY 02/10/18 05/26/23 History Cholecalciferol (Vitamin D3) 2,000 unit PO DAILY 02/10/18 06/02/23 History [Vitamin D3] [place]-3 Fatty Acids/Fish Oil [Fish 1 each PO DAILY 02/10/18 06/02/23 History Oil 1,000 mg Softgel] Glucosamine/Chondr Siddiqui A Sod [Osteo 1 each PO DAILY 04/02/23 06/02/23 History Bi-Flex Caplet] INSULIN LISPRO (For Pump) [humaLOG 0.01 units SQ-PUMP CONTINUOUS 04/02/23 05/26/23 History (For Pump)] Levothyroxine Sodium [Synthroid] 150 mcg PO DAILY 04/02/23 05/26/23 History Vitamin E (Dl,Tocopheryl Acet) 400 unit PO DAILY 04/02/23 06/02/23 History [Vitamin E (400 Iu = 180 mg)] Apixaban [Eliquis] 2.5 mg PO BID #60 tab 06/03/23 Rx HYDROcodone/APAP 7.5-325MG [[place] 1 - 2 each PO Q6HR PRN #36 tab 06/03/23 Rx 7.5] Sennosides/Docusate Sodium [Senna 1 each PO DAILY #20 capsule 06/03/23 Rx Plus 8.6-50 mg Softgel] Allergies Allergy/AdvReac Type Severity Reaction Status Date / Time No Known Allergies Allergy Verified 05/26/23 10:58 Physical Exam Vitals: Vital Signs Temp Pulse Resp BP Pulse Ox 06/02/23 14:15 67 14 113/61 98 06/02/23 14:00 73 14 110/58 98 06/02/23 13:46 97.2 F L 81 14 112/64 98 06/02/23 10:15 59 L 16 116/69 98 06/02/23 09:15 97.4 F L 66 16 140/86 99 Intake and Output 06/02/23 06/02/23 06/02/23 06:59 14:59 22:59 Intake Total 1151 Output Total 50 Balance 1101 Intake: IV 1151 Output: Estimated Blood Loss 50 Other: Weight 93.2 kg 93.2 kg Results CBC & Chem 7: 06/03/23 04:55 06/03/23 04:55 Labs: Abnormal Lab Results - Last 24 Hours (Table) 06/02/23 06/02/23 Range/Units 09:21 13:48 POC Glucose (mg/dL) 120 H 120 H (70-110) mg/dL
[2023-06-02 17:25] LABS: Glucose,Whole Blood 286 mg/dL (70-110)
[2023-06-02] MEDS: HYDROmorphone 0.5 MG/0.5 ML SYRINGE IVP PRN (18:24)
[2023-06-02] MEDS ORDERED: INSPUCOR MISCELLANE PRN (19:17)
[2023-06-02] MEDS: INSULIN PUMP MEAL BOLUS 1 UNIT MISC MISCELLANE SCH (20:36)
[2023-06-02] MEDS: hydrOXYzine pamoate 25 MG CAP PO PRN (21:08)
[2023-06-02] MEDS: SENNOSIDES-DOCUSATE SODIUM 1 EACH TAB PO SCH (21:09)
[2023-06-02 21:12] LABS: Glucose,Whole Blood 236 mg/dL (70-110)
[2023-06-02 22:47] VITALS: RESP 18
[2023-06-03 02:13] LABS: Glucose,Whole Blood 152 mg/dL (70-110)
[2023-06-03 03:41] VITALS: PULSE 70
[2023-06-03] MEDS: LEVOTHYROXINE 75 MCG TAB PO SCH (05:04)
[2023-06-03 06:10] LABS: Glucose,Whole Blood 171 mg/dL (70-110)
--- NOTE | 2023-06-03 06:48 | P.PN ---
Progress Note - Text Progress Note Date: 06/03/23 Postoperative day # 1 status post total knee arthroplasty, under spinal anesthesia, and adductor canal catheter placed for postoperative analgesia. Currently on ropivacaine 0.2% 8 mL per hour with continuous infusion. There is no erythema, and there is no tenderness at site of catheter insertion. VAS: 6/10 Breakthrough Meds: When necessary Percocet Complications: None . Plan: Plan is to continue: Plans to continue the current settings. Patient will go home as planned.
[2023-06-03 08:07] VITALS: BP 125/78; TEMP 98.1
[2023-06-03] MEDS: HYDROmorphone 1 MG/ML 1 ML SYRINGE IVP PRN (08:32)
[2023-06-03 08:50] LABS: Basophils # (A) 0.03 X 10*3/uL (0.00-0.10); Basophils % (A) 0.3 %; Eosinophils # (A) 0.02 X 10*3/uL (0.04-0.35); Eosinophils % (A) 0.2 %; HCT 40.2 % (39.6-50.0); HGB 13.4 g/dL (13.0-17.0); Lymphocytes % (A) 14.7 %; MCH 31.1 pg (27.0-32.0); MCHC 33.3 g/dL (32.0-37.0); MCV 93.3 FL (80.0-97.0); Mean Platelet Volume 10.1 FL (9.5-12.2); Monocytes # (A) 1.07 X 10*3/uL (0.20-1.00); Monocytes % (A) 10.5 %; NRBC Per 100 WBC 0 X 10*3/uL (0.00-0.01); Neutrophils # (A) 7.57 X 10*3/uL (1.80-7.70); Platelet Count 313 X 10*3/uL (140-440); RBC 4.31 X 10*6/uL (4.40-5.60); RDW 12.5 % (11.5-14.5); WBC 10.22 X 10*3/uL (4.50-10.00)
[2023-06-03] MEDS ORDERED: NON FORMULARY DRUG (Omega-3 Fatty Acids/Fish Oil [Fish Oil 1,000 Mg Softgel] 1 EACH Capsul PO SCH (09:00)
[2023-06-03] MEDS ORDERED: NON FORMULARY DRUG (Glucosamine/Chondr Su A Sod [Osteo Bi-Flex Caplet] 1 EACH Tablet) PO SCH (09:00)
[2023-06-03 09:22] LABS: BUN/Creat Ratio 19.62 Ratio (12.00-20.00); Blood Urea Nitrogen 15.7 mg/dL (9.0-27.0); Calcium 9.2 mg/dL (8.7-10.3); Carbon Dioxide 23.3 mmol/L (21.6-31.8); Chloride 103 mmol/L (96-109); Glucose 167 mg/dL (70-110); Magnesium 1.8 mg/dL (1.5-2.4); Potassium 4.2 mmol/L (3.5-5.5); Sodium 137 mmol/L (135-145)
--- NOTE | 2023-06-03 10:14 | P.DS ---
Providers Date of admission: 06/02/2023 Expected date of discharge: 06/03/23 Attending physician: Abdiel Arias Consults: 06/02/23 12:06 Consult Physician Routine Consulting Provider: Venus Celaya Consult Reason/Comments: medical management s/p right total knee arthroplasty Do you want consulting provider notified?: Yes Primary care physician: R[facility] Course: Date of admission: 06/02/2023 Date of discharge: 06/03/2023 Admission diagnosis: Right knee osteoarthritis Discharge diagnosis: Same Attending physician: Dr. Arias Surgical procedures: Right total knee arthroplasty Brief history: Patient is a 63-year-old male with a history of with progressive primary right knee osteoarthritis. At this point patient has failed conservative treatment measures and has opted to proceed with a elective right total knee arthroplasty. Hospital course: Details of patient's surgery can be found in operative report. Patient tolerated the procedure well and was subsequently transported to orthopedic floor. Patient's orthopeidc and medical care was provided daily. Patient had daily laboratory tests performed for evaluation of overall blood cou nts. Patient had daily physical therapy to include strengthening range of motion as well as education with walker ambulation. Patient was treated with Xarelto for their postoperative DVT prophylaxis during their inpatient stay. Patient was noted to have a relatively uneventful postoperative course. Patient reported satisfactory pain control with oral pain medications by postoperative day 1. Patient showed satisfactory progress with physical therapy. Patient moved steadily through the program and had no difficulty meeting the goals by postoperative day 1. Given patient's otherwise satisfactory course and having met physical therapy goals, plan is to discharge patient home with health services on postoperative day 1. Discharge condition/disposition: Patient will be discharged home with health services in stable condition. Discharge medications: Instructions are given on resumption of patient's normal daily medications per primary care recommendation, in addition patient will be p rescribed [place] 7.5 mg/325 12 every 6 hours; senna; Eliquis 2.5 mg twice a day 2 weeks. Discharge instructions: 1. Wound care and infection precautions, keep incision dry and covered while showering, no lotions, creams, moisturizers. No soaking, tubs, pools, hottubs. Do not scrub over the incision. 2. Weight-bear as tolerated with walker / cane until follow-up. 3. Ice and elevate when necessary. Do not exceed 20 minutes per hour with ice pack. 4. Utilize compression sleeve until seen at first follow up appointment. 5. Visiting nursing care. 6. Home physical therapy including home CPM. 7. Pain meds and anticoagulants per prescription. 8. Pain medication has potential to cause constipation. Increase oral fluid and fiber intake. Contact primary care provider if you have not had a bowel movement within 48 hours after discharge 9. No anti-inflammatory medication until discussed at first post operative visit, this including Motrin, Aleve, Mobic, Diclofenac. 10. Follow up in office at 2 weeks postop with Haris Cooper PA-C / Dex Leos PA-C 11. Follow up with your primary care doctor 7-10 days after discharge. 12. Contact [facility] with any questions, . Assessment: Right knee osteoarthritis Procedures: Right total knee arthroplasty Patient Condition at Discharge: Good Plan - Discharge Summary Discharge Rx Participant: No New Discharge Prescriptions: New Apixaban [Eliquis] 2.5 mg PO BID #60 tab HYDROcodone/APAP 7.5-325MG [[place] 7.5] 1 - 2 each PO Q6HR PRN #36 tab PRN Reason: Pain Sennosides/Docusate Sodium [Senna Plus 8.6-50 mg Softgel] 1 each PO DAILY #20 capsule Discontinued Aspirin 81 mg PO DAILY No Action Atorvastatin [Lipitor] 80 mg PO DAILY [place]-3 Fatty Acids/Fish Oil [Fish Oil 1,000 mg Softgel] 1 each PO DAILY Cholecalciferol (Vitamin D3) [Vitamin D3] 2,000 unit PO DAILY INSULIN LISPRO (For Pump) [humaLOG (For Pump)] 0.01 units SQ-PUMP CONTINUOUS Glucosamine/Chondr Siddiqui A Sod [Osteo Bi-Flex Caplet] 1 each PO DAILY Levothyroxine Sodium [Synthroid] 150 mcg PO DAILY Vitamin E (Dl,Tocopheryl Acet) [Vitamin E (400 Iu = 180 mg)] 400 unit PO DAILY Discharge Medication List Atorvastatin [Lipitor] 80 mg PO DAILY 02/10/18 [History] Cholecalciferol (Vitamin D3) [Vitamin D3] 2,000 unit PO DAILY 02/10/18 [History] [place]-3 Fatty Acids/Fish Oil [Fish Oil 1,000 mg Softgel] 1 each PO DAILY 10/17/18 [History] Glucosamine/Chondr Siddiqui A Sod [Osteo Bi-Flex Caplet] 1 each PO DAILY 04/02/23 [History] INSULIN LISPRO (For Pump) [humaLOG (For Pump)] 0.01 units SQ-PUMP CONTINUOUS 04/02/23 [History] Levothyroxine Sodium [Synthroid] 150 mcg PO DAILY 04/02/23 [History] Vitamin E (Dl,Tocopheryl Acet) [Vitamin E (400 Iu = 180 mg)] 400 unit PO DAILY 04/02/23 [History] Apixaban [Eliquis] 2.5 mg PO BID #60 tab 06/03/23 [Rx] HYDROcodone/APAP 7.5-325MG [[place] 7.5] 1 - 2 each PO Q6HR PRN #36 tab 06/03/23 [Rx] Sennosides/Docusate Sodium [Senna Plus 8.6-50 mg Softgel] 1 each PO DAILY #20 capsule 06/03/23 [Rx] Follow up Appointment(s)/Referral(s): Dex Leos, KANG [PHYSICIAN BULK FOLDER] - 2 Weeks Patient Instructions/Handouts: Knee Replacement (DC), Knee Replacement (GEN) Activity/Diet/Wound Care/Special Instructions: Orthopedic Discharge Instructions: 1. Wound care and infection precautions, keep incision dry and covered while showering, no lotions, creams, moisturizers. No soaking, pools, hot tubs. Do not scrub over incision. 2. Weight-bear as tolerated with walker / cane until follow-up. 3. Ice and elevate when necessary. Do not exceed 20 minutes per hour with ice pack. 4. Utilize compression sleeve until seen at first follow up appointment. 5. Pain meds and anticoagulants per prescription. 6. Pain medication has potential to cause constipation. Increase oral fluid and fiber intake. Contact primary care provider if you have not had a bowel movement within 48 hours after discharge. 7. No anti-inflammatory medication until discussed at first post operative visit, this including Motrin, Aleve, Mobic, Diclofenac. 8. Follow up in office at 2 weeks postop with Haris Cooper PA-C / Dex Leos PA-C 9. Follow up with your primary care doctor 7-10 days after discharge. 10. Contact [facility] with any questions, . Keep incision clean, dry, intact. While showering, cover fusion tape with Saran wrap. Keep fusion tape on until follow-up appointment in office at 2 weeks Discharge Disposition: HOME WITH HOME HEALTH SERVICES
[2023-06-03] MEDS: CHOLECALCIFEROL 25 MCG (1000 IU) TABLET PO SCH (10:48)
[2023-06-03] MEDS: ATORVASTATIN 80 MG TAB PO SCH (10:48)
[2023-06-03] MEDS: RIVAROXABAN 10 MG TAB PO SCH (10:48)
[2023-06-03] MEDS: VITAMIN E (DL,TOCOPHERYL ACET) 400 UNIT (180 MG) CAP PO SCH (10:48)
--- NOTE | 2023-06-03 11:37 | P.PN ---
Subjective Progress Note Date: 06/03/23 Principal diagnosis: Right knee osteoarthritis Patient seen at bedside this morning lying semirecumbent position with dressing present over right knee. Patient says he is looking forward to working with therapy later this morning. Patient says he has urinated several times since surgery yesterday. Patient says he has been passing gas but has not had a bowel movement yet. Patient says he does have a walker for home. Patient says he rates pain as 4/5 out of 10 currently to the right knee. Patient denies radiation of pain. Patient denies chest pain, fever, shortness of breath, nausea, vomiting, change in vision, loss of bowel/bladder control. Objective - Vital Signs Vital signs: Vital Signs Temp 98.1 F 06/03/23 07:22 Pulse 70 06/03/23 07:22 Resp 18 06/03/23 07:22 BP 125/78 06/03/23 07:22 Pulse Ox 93 L 06/03/23 07:22 FiO2 Intake & Output 06/02/23 06/03/23 06/03/23 18:59 06:59 18:59 Intake Total 1151 Output Total 200 300 Balance 951 -300 Weight 93.2 kg Intake: IV 1151 Output: Urine 150 300 Estimated Blood Loss 50 Other: Voiding Method Urinal - Exam Right knee: Incision is clean, dry, and intact. The exofin fusion tape is in good condition. There is minimal soft tissue swelling and ecchymosis surrounding the medial and lateral aspects of the incision. Calf is soft, no tenderness with palpation. Plantar flexion, dorsiflexion, EHL, FHL are intact. Sensory exam to light touch throughout the extremity is intact, dorsal pedis pulses 2+. - Labs CBC & Chem 7: 06/03/23 04:55 06/03/23 04:55 Labs: Abnormal Lab Results - Last 24 Hours (Table) 06/02/23 06/02/23 06/02/23 Range/Units 13:48 17:25 21:09 WBC (4.50-10.00) X 10*3/uL RBC (4.40-5.60) X 10*6/uL Monocytes # (0.20-1.00) X 10*3/uL Eosinophils # (0.04-0.35) X 10*3/uL Glucose (70-110) mg/dL POC Glucose (mg/dL) 120 H 286 H 236 H (70-110) mg/dL 06/03/23 06/03/23 06/03/23 Range/Units 02:10 04:55 04:55 WBC 10.22 H (4.50-10.00) X 10*3/uL RBC 4.31 L (4.40-5.60) X 10*6/uL Monocytes # 1.07 H (0.20-1.00) X 10*3/uL Eosinophils # 0.02 L (0.04-0.35) X 10*3/uL Glucose 167 H (70-110) mg/dL POC Glucose (mg/dL) 152 H (70-110) mg/dL 06/03/23 Range/Units 06:08 WBC (4.50-10.00) X 10*3/uL RBC (4.40-5.60) X 10*6/uL Monocytes # (0.20-1.00) X 10*3/uL Eosinophils # (0.04-0.35) X 10*3/uL Glucose (70-110) mg/dL POC Glucose (mg/dL) 171 H (70-110) mg/dL Assessment and Plan Assessment: 1. Right knee osteoarthritis - Postoperative day #1 status post right total knee arthroplasty Plan: 1. Right knee osteoarthritis - right total knee arthroplasty performed yesterday, 06/02/2023. Patient stable at bedside this morning. Pending PT/OT evaluation, plan for discharge home with health services. 2. Appreciate medical management 3. Pain management - [place] 4. DVT prophylaxis - Xarelto in hospital. Going home with Eliquis 2.5 mg twice a day 2 weeks 5. GI prophylaxis - senna 6. PT/OT - weightbearing as tolerated with walker 7. Encourage incentive spirometer use 8. Discharge planning - home today with health services Time with Patient: Less than 30
[2023-06-03 11:46] LABS: Glucose,Whole Blood 167 mg/dL (70-110)
--- NOTE | 2023-06-03 14:24 | P.PN ---
Subjective Progress Note Date: 06/03/23 Hospital Course: Patient is a very pleasant 63-year-old male with a past medical history of insulin-dependent diabetes mellitus, hypertension, hyperlipidemia, hypothyroidism, and osteoarthritis. He is currently admitted under orthopedic surgery team status post elective right total knee arthroplasty secondary to severe tricompartmental osteoarthrosis of right knee with retained hardware of proximal right tibia. Surgical procedure was completed by Dr. Arias. We have been consulted for medical management throughout patient's hospitalization. Patient seen and fully evaluated at bedside. Pt is post-operative day 1. He reports pain is currently controlled and only reports experiencing mild postoperative pain and states that he is ready to go home. He reports full resolution of urinary retention. Denies any other complaints or concerns at this time. Physical exam: Vital signs reviewed and stable. General: Nontoxic, no distress and appears stated age. Derm: Skin warm and dry, normal coloration for ethnicity. Head: Atraumatic, normocephalic and symmetric. Eyes: EOMs intact, no lid lag, and anicteric sclera Mouth: no lip lesions, mucus membranes moist Cardiovascular: regular rate and rhythm with normal S1S2, no murmur, positive posterior tibial pulses bilaterally, and cap refill < 2 seconds. Lungs: Respirations even, regular, and unlabored on room air. Lungs CTA bilate rally, no rhonchi, no rales, no wheezing, and no accessory muscle usage. Abdominal: soft, nontender to palpation, no guarding, no appreciable organomegaly Ext: No gross muscle atrophy, no edema, no contractures. Movement and sensation intact. Postoperative dressing and ice pack in place to right knee. Neuro: Speech clear, face symmetrical and CN II-XII grossly intact with no noted focal neuro deficits Psych: Alert and oriented to person, place, time, and situation. Appropriate and pleasant affect. Assessment and Plan of Care: Postoperative urinary retention, resolved Patient reports urinating without difficulties and denies any further episodes of retention. Status post right total knee arthroplasty Management per primary admitting orthopedic surgery team including DVT prophylaxis, pain management, wound/dressing care, weightbearing, and PT/OT. Currently DVT prophylaxis with Xarelto 10 mg daily. Insulin-dependent diabetes mellitus Continue glycemic protocol with glucose checks to be completed 4 times daily with meals and at bedtime along with orders placed for patient to continue use of personal insulin pump. Heart healthy and carb consistent diet. Hypothyroidism Continue daily medication regimen with levothyroxine 150 mcg daily. Hyperlipidemia Continue daily medication regimen with atorvastatin 80 mg daily. Heart healthy and carb consistent diet. Data reviewed: Postoperative labs reviewed. CBC showing mild leukocytosis with WBC count of 10.22 with a stable postoperative hemoglobin of 13.4 and platelet count of 313. BMP was unremarkable. Magnesium also normal findings at 1.8. Vital signs reviewed and stable. Blood pressure 125/78, heart rate 70, respiratory rate 18, temp 98.1 F, and SpO2 of 93% on room air. Medically, patient is optimized for discharge with no further recommendations once cleared by primary admitting orthopedic surgery team. Thank you for allowing us to participate in the care of this pleasant patient. Do not hesitate to contact us with questions. Someone can be reached from the [facility] [place] hospitalist group all hours of the day at [phone] or via [employer]. Patient was seen independently by Nurse Practitioner. This document was prepared using [employer] dictation software. Please allow for errors in cartridge loader while rare they do occur. Juaquin Velazco NP rendered care for this patient independently, reviewed the findings and plan as documented in the note above. I did not physically speak with or examine the patient on this date. Objective - Vital Signs Vital signs: Vital Signs Temp 98.1 F 06/03/23 07:22 Pulse 70 06/03/23 07:22 Resp 18 06/03/23 07:22 BP 125/78 06/03/23 07:22 Pulse Ox 93 L 06/03/23 07:22 FiO2 Intake & Output 06/02/23 06/03/23 06/03/23 18:59 06:59 18:59 Intake Total 1151 Output Total 200 300 Balance 951 -300 Weight 93.2 kg Intake: IV 1151 Output: Urine 150 300 Estimated Blood Loss 50 Other: Voiding Method Urinal - Labs CBC & Chem 7: 06/03/23 04:55 06/03/23 04:55 Labs: Abnormal Lab Results - Last 24 Hours (Table) 06/02/23 06/02/23 06/02/23 Range/Units 09:21 13:48 17:25 POC Glucose (mg/dL) 120 H 120 H 286 H (70-110) mg/dL 06/02/23 06/03/23 06/03/23 Range/Units 21:09 02:10 06:08 POC Glucose (mg/dL) 236 H 152 H 171 H (70-110) mg/dL
== END 2023-06-03 14:45 | disposition home health service (06) ==
LOC: OR 08:39 → 4SSUR 12:06 → OR 12:06 → 4SSUR 13:46
PROVIDERS: ADMIT Orthopaedic Surgery; ATTEND Orthopaedic Surgery
DX: M17.11 Unilateral primary osteoarthritis, right knee (principal); Z18.89 Other specified retained foreign body fragments; M21.161 Varus deformity, not elsewhere classified, right knee; N99.89 Other postprocedural complications and disorders of genitourinary system; R33.9 Retention of urine, unspecified; E10.9 Type 1 diabetes mellitus without complications; E78.5 Hyperlipidemia, unspecified; E03.9 Hypothyroidism, unspecified; Z79.82 Long term (current) use of aspirin; Z79.890 Hormone replacement therapy; Z79.899 Other long term (current) drug therapy; Z87.891 Personal history of nicotine dependence; Z96.41 Presence of insulin pump (external) (internal)
CPT/HCPCS: 27447; 97161; 64999; 64448; 80048; 83735; 85025; 73560; G0378; C1713 ×2; C1776; C1751; J2250; J1100; J0690 ×3; J2405; J3010; J1170 ×2; J2795